=== PATIENT | female | born 1970 | race Caucasian/White ===

== ENCOUNTER 2017-12-14 13:31 | Observation (INO) | payer OTHER ==
[~2017-12-14] VITALS: Ht 157.5 cm; Wt 91.6 kg
[~2017-12-14 13:31] MED LIST: AMBIEN10 MG PO; ATIVAN0.5 MG PO; BUSPAR5 MG PO; CALCIUM + VITA1 EACH PO; CARDIZEM CD240 MG PO; COLACE100 MG PO; EXELON PATCH9.5 MG TD; GLUCAGON1 MG IM; LANTUS100 UNIT/1 SQ; LASIX80 MG PO; LEXAPRO20 MG PO; LOPRESSOR100 MG PO; NOVOLOG (UNITS1 UNIT IV; NOVOLOG100 UNIT/2 SQ; NOVOLOG100 UNIT/3 SQ; PLETAL50 MG PO; PRAVACHOL20 MG PO; SYNTHROID88 MCG PO; TYLENOL EXTRA500 MG PO; UTAC TABLET1 EACH PO
[2017-12-14 14:54] LABS: BASOPHIL (%) 0.7 % (0-1); BASOPHIL COUNT 0.1 K/uL (0-0.1); EOSINOPHIL (%) 1.1 % (0-5); EOSINOPHIL COUNT 0.1 K/uL (0-0.3); HEMATOCRIT 41.8 % (36.0-46.0); HEMOGLOBIN 13.6 G/DL (11.9-15.5); IMMATURE GRANULOCYTE (%) 0.5 % (0.0-0.7); LYMPHOCYTE (%) 25.7 % (15-42); LYMPHOCYTE COUNT 2.8 K/uL (1.0-2.8); MCHC 32.5 G/DL (30.0-36.0); MCV 82.9 FL (83-99); MONOCYTE (%) 5.9 % (3-12); MONOCYTE COUNT 0.7 K/uL (0-0.8); NEUTROPHIL (%) 66.1 % (45-76); NEUTROPHIL COUNT 7.3 K/uL (1.8-6.4); PLATELET COUNT 262 K/uL (156-360); RBC DIS.WIDTH-CV 14.8 % (11.8-14.6); RBC DIS.WIDTH-SD 44.6 % (39-53); RED BLOOD COUNT 5.04 M/uL (3.80-5.20)
[2017-12-14 15:19] LABS: APPEARANCE CLEAR ((CLEAR)); BILIRUBIN NEGATIVE; BLOOD NEGATIVE; COLOR YELLOW ((YELLOW)); GLUCOSE (STRIP) NEGATIVE; KETONES NEGATIVE; LEUKOCYTES NEGATIVE; NITRITE NEGATIVE; PROTEIN (STRIP) 30; UCUL ADDED? NO; UROBILINOGEN 0.2 MG/DL (0.2-1.0)
[2017-12-14 15:22] LABS: CHLORIDE 100 MEQ/L (99-109); CREATININE 0.9 MG/DL (0.6-1.3); GFR ESTIMATE (CALCULATED) > 59 mL/min/; GLUCOSE 108 mg/dL (70-99); POTASSIUM 3.6 MEQ/L (3.7-5.4); SODIUM 138 MEQ/L (136-147); UREA NITROGEN (BUN) 7 mg/dL (9-23)
[2017-12-14 15:36] LABS: AMPHETAMINE NEGATIVE (500 ng/mL); BARBITURATES NEGATIVE (200 ng/mL); BENZODIAZEPINES PRESUMPTIVE POSITIVE (150 ng/mL); BUPRENORPHINE NEGATIVE (10 ng/mL); COCAINE NEGATIVE (150 ng/mL); METHADONE NEGATIVE (200 ng/mL); METHAMPHETAMINE NEGATIVE (500 ng/mL); OPIATES (MORPHINE) NEGATIVE (100 ng/mL); OXYCODONE PRESUMPTIVE POSITIVE (100 ng/mL); PHENCYCLIDINE NEGATIVE (25 ng/mL); PROPOXYPHENE NEGATIVE (300 ng/mL); THC CANNABINOIDS PRESUMPTIVE POSITIVE (50 ng/mL); TRICYCLIC ANTIDEPRESSANTS NEGATIVE (300 ng/mL)
[2017-12-14 15:53] LABS: ERTH.SED.RATE 59 MM/HR (0-20)
[2017-12-14 16:15] LABS: BENZODIAZEPINES, URINE SCREEN POSITIVE (200 ng/mL)
[2017-12-14 17:59] LABS: C-REACTIVE PROTEIN 42.7 MG/L (0-10)
[2017-12-14] MEDS ORDERED: SANCTURA20 MG PO (18:44)
[2017-12-14] MEDS ORDERED: VISTARIL25 MG PO (18:46)
[2017-12-14] MEDS ORDERED: LAMICTAL25 MG PO (18:46)
[2017-12-14] MEDS ORDERED: BENTYL10 MG PO (18:47)
[2017-12-14] MEDS ORDERED: GLUCOPHAGE XR,500 MG PO (18:47)
[2017-12-14] MEDS ORDERED: PYRIDIUM200 MG PO (18:48)
[2017-12-14] MEDS ORDERED: ZANAFLEX6 MG PO ×2 (18:50)
[2017-12-14] MEDS ORDERED: CYMBALTA30 MG PO (18:51)
[2017-12-14] MEDS ORDERED: VALIUM5 MG PO (18:51)
[2017-12-14] MEDS ORDERED: ZOFRAN8 MG PO (18:52)
[2017-12-14] MEDS ORDERED: ALEVE220 M2 PO (18:53)
[2017-12-14] MEDS ORDERED: ZANTAC150 MG PO (18:56)
[2017-12-14] MEDS ORDERED: PRILOSEC20 MG PO (18:57)
[2017-12-14 20:56] VITALS: BP 126/61
[2017-12-15 03:24] VITALS: BP 96/55
[2017-12-15 07:34] VITALS: BP 129/60
[2017-12-15 10:08] LABS: HEMATOCRIT 37.6 % (36.0-46.0); HEMOGLOBIN 11.9 G/DL (11.9-15.5); MCH 26.8 PG (29.0-34.0); MCHC 31.6 G/DL (30.0-36.0); MCV 84.7 FL (83-99); PLATELET COUNT 260 K/uL (156-360); RBC DIS.WIDTH-SD 46.1 % (39-53); RED BLOOD COUNT 4.44 M/uL (3.80-5.20)
[2017-12-15 11:04] LABS: HISTONE ANTIBODY ND U/mL (0-99)
[2017-12-15 11:10] LABS: CHLORIDE 102 MEQ/L (99-109); CREATINE KINASE 349 IU/L (1-294); GFR ESTIMATE (CALCULATED) > 59 mL/min/; GLUCOSE 150 mg/dL (70-99); SODIUM 140 MEQ/L (136-147); UREA NITROGEN (BUN) 8 mg/dL (9-23)
[2017-12-15 11:22] LABS: INTER. NORMALIZED RATIO 1.2
[2017-12-15 11:25] LABS: PTT 31.1 SEC (25-37)
[2017-12-15 11:45] VITALS: BP 133/60
[2017-12-15 12:01] LABS: ALBUMIN 3.7 G/DL (3.2-4.8)
[2017-12-15] MEDS ORDERED: CALTRATE PLUS1 EACH PO (12:39)
[2017-12-15] MEDS ORDERED: PERCOCET 5/31 TABLET PO (12:40)
[2017-12-17 13:30] LABS: Neutrophil Cytoplasmic Aby Negative (Negative)
== END 2017-12-15 14:42 | disposition home or self-care (01) ==
LOC: EME 13:31 → EDOF 19:30 → 4SOUTH 19:30 → EDOF 19:30 → 4SOUTH 19:30 → ENRESERV 19:37 → 4SOUTH 21:02
PROVIDERS: Emergency Medicine; Hospitalist
DX: G89.29 Other chronic pain (principal); M79.89 Other specified soft tissue disorders; M79.661 Pain in right lower leg; M79.662 Pain in left lower leg; Z98.1 Arthrodesis status; I10 Essential (primary) hypertension; J45.909 Unspecified asthma, uncomplicated; K21.9 Gastro-esophageal reflux disease without esophagitis; K58.9 Irritable bowel syndrome, unspecified; G43.909 Migraine, unspecified, not intractable, without status migrainosus; M79.7 Fibromyalgia; E11.9 Type 2 diabetes mellitus without complications; E03.9 Hypothyroidism, unspecified; F41.9 Anxiety disorder, unspecified; N31.9 Neuromuscular dysfunction of bladder, unspecified; E66.9 Obesity, unspecified; Z68.36 Body mass index [BMI] 36.0-36.9, adult; Z90.49 Acquired absence of other specified parts of digestive tract; Z90.710 Acquired absence of both cervix and uterus; Z79.84 Long term (current) use of oral hypoglycemic drugs; Z82.49 Family history of ischemic heart disease and other diseases of the circulatory system; Z83.3 Family history of diabetes mellitus; Z88.0 Allergy status to penicillin; Z88.1 Allergy status to other antibiotic agents; Z88.6 Allergy status to analgesic agent; Z88.5 Allergy status to narcotic agent; Z88.8 Allergy status to other drugs, medicaments and biological substances
CPT/HCPCS: 80048; 81003; 82040; 82550; 82948; 84999; 85025; 85027; 85610; 85651; 85730; 86021 90; 86038; 86140; 86235; 93970; 99281; 99285; G0378; J2405; J2765; J3010; Q0177